=== PATIENT | male | born 1985 | race Caucasian/White ===

== ENCOUNTER → 2018-02-18 | Outpatient (CLI) | payer BC ==
[2018-02-18 18:13] LABS: AFPT MARKER 3.4 ng/mL (0.0-8.3); TESTOSTERONE TOTAL 328 ng/dL (264-916)
== END | disposition home or self-care (01) ==
LOC: LAB 09:58
PROVIDERS: ATTEND Family Medicine
DX: C62.12 Malignant neoplasm of descended left testis (principal)
CPT/HCPCS: 36415; 82105; 83615; 84403; 84702; 84704